=== PATIENT | female | born 1965 | race Caucasian/White ===

== ENCOUNTER 2019-12-23 08:02 | Outpatient (CLI) | payer OTHER, SELFPAY ==
--- NOTE | ~2019-12-23 | MM_ITS ---
EXAMINATION: MM screening [facility] BI w dea HISTORY: Screening mammogram TECHNIQUE: Craniocaudal and mediolateral oblique 3-D tomosynthesis images were obtained and synthetic 2-D images were generated. CAD analysis was submitted and interpreted. COMPARISON: 11/26/2018, 02/18/2016, 01/07/2015 BREAST PARENCHYMAL COMPOSITION: There are scattered areas of fibroglandular density. FINDINGS: There is no evidence of suspicious mass, calcification, or architectural distortion to sugg est malignancy in either breast. There has been no suspicious interval change. IMPRESSION: 1. No mammographic evidence of malignancy. 2. Recommend routine screening mammography in one year. BI-RADS Category 1: Negative Reviewed, dictated and finalized at location A.
== END 2019-12-23 08:03 | disposition home or self-care (01) ==
LOC: ANHIMG 08:05
PROVIDERS: PCP Family Medicine Adolescent Medicine; Visit Provider Family Medicine Adolescent Medicine
DX: Z12.31 Encounter for screening mammogram for malignant neoplasm of breast (principal)
CPT/HCPCS: 77063; 77067

== ENCOUNTER → 2021-03-01 15:16 | Outpatient (CLI) | payer OTHER, SELFPAY ==
--- NOTE | ~2021-03-01 | MM_ITS ---
EXAMINATION: MM screening [facility] w [facility] HISTORY: Screening TECHNIQUE: Craniocaudal and mediolateral oblique 3-D tomosynthesis images were obtained and synthetic 2-D images were generated. CAD analysis was submitted and interpreted. COMPARISON: Comparison to multiple prior studies sequentially, with oldest reviewed study dated 10/04. BREAST PARENCHYMAL COMPOSITION: Breast composed of scattered areas of fibroglandular density. FINDINGS: Stable bilateral nodular asymmetries. There is no evidence of suspicious mass, calcificatio n, or architectural distortion to suggest malignancy in either breast. There has been no suspicious i nterval change. IMPRESSION: 1. No mammographic evidence of malignancy. 2. Recommend routine screening mammography in one year. BI-RADS Category 2: Benign finding(s). Reviewed, dictated and finalized at location A.
== END ==
PROVIDERS: PCP Family Medicine Adolescent Medicine; Visit Provider Family Medicine Adolescent Medicine
DX: Z12.31 Encounter for screening mammogram for malignant neoplasm of breast (principal)
CPT/HCPCS: 77063; 77067

== ENCOUNTER → 2021-12-16 11:53 | Outpatient (CLI) | payer OTHER, SELFPAY ==
--- NOTE | ~2021-12-16 | CT_ITS ---
EXAMINATION:CT lung screening DATE: 12/16/2021 12:07 INDICATION: Personal history of nicotine dependence. Current smoker with 20 pack year history. TECHNIQUE: Computed tomography (CT) of the chest was performed without intravenous contrast. Automate d exposure control and iterative reconstruction technique were employed. The dose-length product (DLP ) was 126.88 mGy-cm. COMPARISON: None. FINDINGS: The lungs demonstrate mild atelectasis bilaterally. No pleural effusion. The heart size is normal. No pericardial effusion. There is diffuse hepatic steatosis. There is mild thoracic spondylos is. There is a benign bone island in T4 vertebral body. IMPRESSION: 1. Lung-RADS category 2: Benign appearance or behavior. Continue annual screening with noncontrast lo w-dose chest CT in 12 months. Reviewed, dictated and finalized at location A. IMPRESSION: 1. Lung-RADS category 2: Benign appearance or behavior. Continue annual screeni ng with noncontrast low-dose chest CT in 12 months.
== END ==
PROVIDERS: PCP Family Medicine Adolescent Medicine; Visit Provider Physician Assistant
DX: Z12.2 Encounter for screening for malignant neoplasm of respiratory organs (principal); Z87.891 Personal history of nicotine dependence
CPT/HCPCS: 71271

== ENCOUNTER 2021-12-27 00:36 | Day surgery (SDC) | payer OTHER, SELFPAY ==
[2021-12-14 15:14] VITALS: BMI 29.2
[2021-12-27 08:43] VITALS: BP 121/79; PULSE 70; RESP 16; TEMP 35.9; O2SAT 98; BMI 28.8
--- NOTE | 2021-12-27 08:54 | WPDGICN ---
Assessment and Plan Assessment and plan (1) Family history of colonic polyps: Code(s): Z83.71 - Family history of colonic polyps Status: Acute Assessment and Plan: Patient's father had colon polyps as well as a history of colitis. Surveillance colonoscopy is recommended now and intervals in the future. GI Consult Note Consult date/time: 12/27/21 08:54 HPI: Nii Sy is a 56 year old female Presents for screening colonoscopy. Patient reports that her current weight appetite and bowel movements are normal. She denies abdominal pain. She has had no bleeding. Last colonoscopy 7 years ago was unremarkable. Family history significant her father had colitis and also had colon polyps. Patient presents today for screening exam. Review of Systems Review of Systems: All systems reviewed & are unremarkable except as noted in HPI and below PMFSH Surgical History Surgical History History of bladder suspension procedure 05/2006 History of partial hysterectomy 05/2006 Family History Family History (Updated 11/12/21 @ 09:51 by Amina Nolan MA) Grandparent Carcinoma of colon Colon polyp Diabetes mellitus Father IBS (irritable bowel syndrome) Cerebrovascular accident Colon polyp Sibling Depression Mother Diabetes mellitus Hypertension Social History Social History (Updated 11/12/21 @ 09:53 by Amina Nolan MA) Smoking packs per day: 0.75 Smoking cigarettes per day: 15.0 Years smoked: 40 Smoking pack-years: 30.00 Smoking status: Current every day smoker Tobacco type: cigarettes Second hand tobacco smoke exposure: No Alcohol intake: current Drinks per week: 1 Substance use: never Substance use type: does not use Living arrangements: with family Gender identity (if verbalized by the patient): Female Sexual Orientation (if Verbalized by the Patient): Straight or Heterosexual Spiritual care concerns: No Agree to blood products: Yes Meds Home Medications and Allergies Home Medications Medication Instructions Recorded Confirmed Type lorazepam 1 mg tablet See Rx Instructions PO DAILY PRN 09/28/21 12/27/21 Rx #30 tablet metoprolol succinate 50 mg 50 mg PO DAILY #90 tablet 10/21/21 12/27/21 Rx tablet,extended release 24 hr bimatoprost 0.01 % eye drops 1 drp EACH EYE QPM ml 11/12/21 12/27/21 History multivit with 1 tablet PO DAILY 11/12/21 12/27/21 History ykkuhmyd-dnpw-FS-lutein 8 mg iron-400 mcg-300 mcg tablet omega 9-ijv-igb-fish oil 1,200 mg 1 cap PO DAILY cap 11/12/21 12/27/21 History (144 mg-216 mg) capsule venlafaxine 75 mg capsule,extended 75 mg PO DAILY #90 cap 11/12/21 12/27/21 Rx release 24 hr atorvastatin 10 mg tablet 10 mg PO DAILY #90 tablet 11/22/21 12/27/21 Rx fenofibrate 160 mg tablet 160 mg PO DAILY #90 tablet 11/22/21 12/27/21 Rx zolpidem 10 mg tablet 10 mg PO QHS PRN #90 tablet 12/06/21 12/27/21 Rx omega 0-uyy-ejj-vitamin E [Systane 2 cap PO DAILY 12/14/21 12/27/21 History Vitamin] Allergies Allergy/AdvReac Type Severity Reaction Status Date / Time Sulfa (Sulfonamide Allergy Intermediate Hives Verified 12/27/21 08:42 Antibiotics) Vital Signs Vital Signs - 24 hr 12/27/21 08:43 Temperature 96.6 F L Pulse Rate 70 Respiratory Rate 16 Blood Pressure 121/79 Pulse Oximetry 98 Exam Narrative: Physical exam reveals patient to be alert. Vital signs stable. HEENT exam is unremarkable. Patient is anicteric. Lungs are clear to auscultation and percussion. Heart is without murmur or extra sounds. Abdomen bowel sounds are present soft nontender with no organomegaly. Digital external rectal exam is normal.
[2021-12-27] MEDS: LACTATED RINGERS 1,000 ML 150 ML IV CONT (09:07)
--- NOTE | 2021-12-27 09:12 | WPDANESEPPF ---
Anes - Initial Pre Proc Eval Procedure: Operation Date: 12/27/21 09:30 Proposed Procedures p Screening Colonoscopy - Faraz Gagnon MD Date/Time: 12/27/21 09:12 Surgeon: Faraz Gagnon MD Pre Op Diagnosis: family hx colon polyps, neoplasm screening Patient Data Age: 56 Gender: F Height: 1.68 m Weight: 81 kg Last Vital Signs Temp 96.6 F L 12/27/21 08:43 Pulse 70 12/27/21 08:43 Resp 16 12/27/21 08:43 BP 121/79 12/27/21 08:43 Pulse Ox 98 12/27/21 08:43 Allergies Allergy/AdvReac Type Severity Reaction Status Date / Time Sulfa (Sulfonamide Allergy Intermediate Hives Verified 12/27/21 08:42 Antibiotics) Home Medications Medication Instructions Recorded Confirmed Type lorazepam 1 mg tablet See Rx Instructions PO DAILY PRN 09/28/21 12/27/21 Rx #30 tablet metoprolol succinate 50 mg 50 mg PO DAILY #90 tablet 10/21/21 12/27/21 Rx tablet,extended release 24 hr bimatoprost 0.01 % eye drops 1 drp EACH EYE QPM ml 11/12/21 12/27/21 History multivit with 1 tablet PO DAILY 11/12/21 12/27/21 History mkwqhpxv-jqja-XI-lutein 8 mg iron-400 mcg-300 mcg tablet omega 8-qlw-snh-fish oil 1,200 mg 1 cap PO DAILY cap 11/12/21 12/27/21 History (144 mg-216 mg) capsule venlafaxine 75 mg capsule,extended 75 mg PO DAILY #90 cap 11/12/21 12/27/21 Rx release 24 hr atorvastatin 10 mg tablet 10 mg PO DAILY #90 tablet 11/22/21 12/27/21 Rx fenofibrate 160 mg tablet 160 mg PO DAILY #90 tablet 11/22/21 12/27/21 Rx zolpidem 10 mg tablet 10 mg PO QHS PRN #90 tablet 12/06/21 12/27/21 Rx omega 3-azx-pwo-vitamin E [Systane 2 cap PO DAILY 12/14/21 12/27/21 History Vitamin] Patient hx anesthesia problems: none Family hx anesthesia problems: none Results Review: All pre-operative results and documents have been reviewed as part of the pre-operative evaluation. PMFSH Surgical History Surgical History History of bladder suspension procedure 05/2006 History of partial hysterectomy 05/2006 Family History Family History (Updated 11/12/21 @ 09:51 by Amina Nolan MA) Grandparent Carcinoma of colon Colon polyp Diabetes mellitus Father IBS (irritable bowel syndrome) Cerebrovascular accident Colon polyp Sibling Depression Mother Diabetes mellitus Hypertension Social History Social History (Updated 11/12/21 @ 09:53 by Amina Nolan MA) Smoking packs per day: 0.75 Smoking cigarettes per day: 15.0 Years smoked: 40 Smoking pack-years: 30.00 Smoking status: Current every day smoker Tobacco type: cigarettes Second hand tobacco smoke exposure: No Alcohol intake: current Drinks per week: 1 Substance use: never Substance use type: does not use Living arrangements: with family Gender identity (if verbalized by the patient): Female Sexual Orientation (if Verbalized by the Patient): Straight or Heterosexual Spiritual care concerns: No Agree to blood products: Yes Anes - Eval Final PreProcedure Day of Procedure 12/27/21 09:12 Patient weight: overweight Heart: regular rate and rhythm Lungs: clear to auscultation Airway: Mallampati scale class II Neurological: alert and oriented Last oral intake: >/= 8 hours ASA classification: III Emergent: no Anesthetic plan: proceed Anesthesia type and monitoring: general GIVS and standard monitoring Results Review: All pre-operative results and documents have been reviewed as part of the pre-operative evaluation. Informed Consent: The patient's anesthetic plan and its attendant risks and benefits were discussed with the patient/family/POA. Questions were solicited and answers provided to the satisfaction of the patient/family/POA.
[2021-12-27 09:51] VITALS: BP 100/69; PULSE 67; RESP 16; O2SAT 95
[2021-12-27 10:01] VITALS: BP 100/69; PULSE 67; RESP 16; O2SAT 95
[2021-12-27 10:11] VITALS: BP 118/84; PULSE 65; RESP 19; O2SAT 95
== END 2021-12-27 10:17 | disposition home or self-care (01) ==
PROVIDERS: PCP Family Medicine Adolescent Medicine; Visit Provider Internal Medicine Gastroenterology
PROC: 0DJD8ZZ Inspection of Lower Intestinal Tract, Via Natural or Artificial Opening Endoscopic (ICD-10-PCS; CPT 45378; principal; 2021-12-27 09:30)
DX: Z12.11 Encounter for screening for malignant neoplasm of colon (principal); K63.5 Polyp of colon; K64.8 Other hemorrhoids; K57.30 Diverticulosis of large intestine without perforation or abscess without bleeding; Z83.71 Family history of colonic polyps; F17.210 Nicotine dependence, cigarettes, uncomplicated
CPT/HCPCS: 45385; 88305; J2704; J7120

== ENCOUNTER → 2022-03-03 07:17 | Outpatient (CLI) | payer OTHER, SELFPAY ==
--- NOTE | ~2022-03-03 | MM_ITS ---
EXAMINATION: MM screening [facility] w [facility] HISTORY: Screening TECHNIQUE: Craniocaudal and mediolateral oblique 3-D tomosynthesis images were obtained and synthetic 2-D images were generated. CAD analysis was submitted and interpreted. COMPARISON: Comparison to multiple prior studies sequentially, with oldest reviewed study dated 10/2013. BREAST PARENCHYMAL COMPOSITION: The breasts are heterogeneously dense, which may obscure small masses . FINDINGS: There is no evidence of suspicious mass, calcification, or architectural distortion to sugg est malignancy in either breast. There has been no suspicious interval change. IMPRESSION: 1. No mammographic evidence of malignancy. 2. Recommend routine screening mammography in one year. BI-RADS Category 1: Negative Reviewed, dictated and finalized at location L.
== END ==
PROVIDERS: PCP Family Medicine Adolescent Medicine; Visit Provider Physician Assistant
DX: Z12.31 Encounter for screening mammogram for malignant neoplasm of breast (principal)
CPT/HCPCS: 77063; 77067

== ENCOUNTER 2024-04-17 12:25 | Outpatient (CLI) | payer OTHER, SELFPAY ==
--- NOTE | ~2024-04-17 | MM_ITS ---
EXAMINATION: MM screening [facility] w [facility] HISTORY: Screening TECHNIQUE: Craniocaudal and mediolateral oblique 3-D tomosynthesis images were obtained and synthetic 2-D images were generated. CAD analysis was submitted and interpreted. COMPARISON: Comparison to multiple prior studies sequentially, with oldest reviewed study dated 01/07. BREAST PARENCHYMAL COMPOSITION: Dense: The breasts are heterogeneously dense, which may obscure small masses FINDINGS: There is no evidence of suspicious mass, calcification, or architectural distortion to sugg est malignancy in either breast. There has been no suspicious interval change. IMPRESSION: 1. No mammographic evidence of malignancy. 2. Recommend routine screening mammography in one year. BI-RADS Category 1: Negative Reviewed, dictated and finalized at location B.
== END 2024-04-17 12:26 | disposition home or self-care (01) ==
LOC: MICIMG 12:26
PROVIDERS: PCP Family Medicine Adolescent Medicine; Visit Provider Family Medicine Adolescent Medicine
DX: Z12.31 Encounter for screening mammogram for malignant neoplasm of breast (principal)
CPT/HCPCS: 77063; 77067

== ENCOUNTER 2025-05-21 09:44 | Outpatient (CLI) | payer BC, SELFPAY ==
--- NOTE | ~2025-05-21 | MM_ITS ---
EXAMINATION: MM screening [facility] w [facility] HISTORY: Screening TECHNIQUE: Craniocaudal and mediolateral oblique 3-D tomosynthesis images were obtained and synthetic 2-D images were generated. CAD analysis was submitted and interpreted. COMPARISON: Comparison to multiple prior studies sequentially, with oldest reviewed study dated , 11/26/2018 BREAST PARENCHYMAL COMPOSITION: The breasts are heterogeneously dense, which may obscure small masses. FINDINGS: There is no evidence of suspicious mass, calcification, or architectural distortion to suggest malignancy in either breast. IMPRESSION: 1. No mammographic evidence of malignancy. 2. Recommend routine screening mammography in one year. BI-RADS Category 1: Negative Reviewed, dictated and finalized at location B.
== END 2025-05-21 09:45 | disposition home or self-care (01) ==
LOC: CHSIMG 09:47
PROVIDERS: PCP Family Medicine Adolescent Medicine; Visit Provider Family Medicine Adolescent Medicine
DX: Z12.31 Encounter for screening mammogram for malignant neoplasm of breast (principal)
CPT/HCPCS: 77063; 77067